=== PATIENT | female | born 1960 | race Caucasian/White ===

== ENCOUNTER 2025-03-27 16:27 | Emergency (ER) | payer OTHER ==
[2025-03-27] MEDS ORDERED: cefTRIAXone (ROCEPHIN) 250 MG VIAL ONE (16:53)
== END 2025-03-27 17:19 | disposition home or self-care (01) ==
LOC: BURERS 16:27
DX: S51.851A Open bite of right forearm, initial encounter (principal); L03.113 Cellulitis of right upper limb; F17.210 Nicotine dependence, cigarettes, uncomplicated; W54.0XXA Bitten by dog, initial encounter
CPT/HCPCS: 96372; 99283; J0696